=== PATIENT | female | born 1960 | race Caucasian/White ===

== ENCOUNTER 2017-11-11 12:39 | Emergency (ER) | payer OTHER ==
[~2017-11-11] VITALS: Ht 152.4 cm; Wt 54.4 kg
[~2017-11-11 12:39] MED LIST: ALBU90OI INH; Daily Multiple1 EACH PO; ERGO400 PO; Naprosyn500 MG PO; Veetids 500500 MG PO
[2017-11-11] MEDS ORDERED: CEPH500 PO (13:45)
== END 2017-11-11 13:54 | disposition home or self-care (01) ==
LOC: ER 12:39
DX: L08.9 Local infection of the skin and subcutaneous tissue, unspecified (principal); F17.200 Nicotine dependence, unspecified, uncomplicated; Z88.5 Allergy status to narcotic agent
CPT/HCPCS: 99282

== ENCOUNTER 2017-12-23 08:15 | Emergency (ER) | payer OTHER ==
[~2017-12-23] VITALS: Ht 152.4 cm; Wt 56.7 kg
[~2017-12-23 08:15] MED LIST changes: +CEPH500 PO
[2017-12-23] MEDS ORDERED: IBUP800 PO (09:46)
== END 2017-12-23 10:05 | disposition home or self-care (01) ==
LOC: ER 08:15
DX: S52.512A Displaced fracture of left radial styloid process, initial encounter for closed fracture (principal); S62.002K Unspecified fracture of navicular [scaphoid] bone of left wrist, subsequent encounter for fracture with nonunion; F17.200 Nicotine dependence, unspecified, uncomplicated; Z88.5 Allergy status to narcotic agent; W18.30XA Fall on same level, unspecified, initial encounter
CPT/HCPCS: 29125; 73110; 99283